=== PATIENT | male | born 1975 | race American Indian/Alaskan Native ===

== ENCOUNTER 2017-05-21 15:43 | Emergency (ER) | payer OTHER ==
[2017-05-21 16:25] VITALS: BP 123/87
--- NOTE | 2017-05-21 16:25 | Emergency Department Report ---
Chief Complaint: Headache Stated Complaint: HEAD PAIN / MIGRANES Time Seen by Provider: 05/21/17 16:22 - HPI History of Present Illness: PT c/o daily headache x 1 month. PT has been seen by PCP and today he was sent to the ED for a scan. PT states his pain is usually on his R side - ROS Review of Systems: + headache - n/v + right eye photophobia - Exam Physical Exam: PT is alert and appropriate gcs 15 steady gait MSE screening note: Focused history and physical exam performed. Due to findings the following was ordered: ct ED Disposition for MSE Condition: Stable
--- NOTE | 2017-05-21 17:18 | Cat Scan Report ---
FINAL REPORT EXAM: CT HEAD/BRAIN WO CON HISTORY: headache x 1 month TECHNIQUE: Noncontrast serial axial images from skull base to vertex. PRIORS: None. FINDINGS: There is no mass effect or midline shift. There are no abnormal intra or extra-axial fluid collections. Cortical sulci and lateral ventricles are within normal limits for size and configuration. Basilar cisterns are patent. No acute intracranial hemorrhage is identified. Visualized paranasal sinuses and mastoid air cells are well aerated. No acute osseous abnormality is identified. IMPRESSION: 1. No abnormal mass or acute intracranial hemorrhage is identified.
--- NOTE | 2017-05-21 17:43 | Emergency Department Report ---
ED Headache HPI - General Chief Complaint: Headache Stated Complaint: HEAD PAIN / MIGRANES Time Seen by Provider: 05/21/17 16:22 Source: patient Exam Limitations: no limitations - History of Present Illness Initial Comments: PT states he had headaches over 5 years ago. PT states he started having daily headaches x 1 month. PT states he was seen by PCP and started on a daily medication without improvement. PT states his head started hurting today. PT states he went to PCP office and was given a referral to Neuro and told to go to the ED for scan of his head. PT states his head is starting to feel better. Timing/Duration: waxing and waning Quality: severe, pressure Head Injury Location: frontal (R ), temporal (R ), occipital (R ), parietal (R) Modifying Factors: worse with: medication Associated Symptoms: denies: facial pain, fever/chills, loss of consciousness, nausea/vomiting, nasal congestion, nasal drainage, numbness in legs/feet, seizures, vision changes, weakness Allergies/Adverse Reactions: Allergies No Known Allergies Allergy (Verified 05/21/17 16:27) Home Medications: Ambulatory Orders Butalb/Acetamin/Caff 50-325-40 [Fioricet] 1 tab PO Q6HR PRN #12 tab 05/21/17 ED Review of Systems ROS: Stated complaint: HEAD PAIN / MIGRANES Other details as noted in HPI Comment: All other systems reviewed and negative Constitutional: denies: fever Eyes: eye pain (photophobia ) ENT: denies: congestion Cardiovascular: denies: syncope Gastrointestinal: denies: nausea, vomiting Skin: denies: rash Neurological: as per HPI, headache. denies: weakness, numbness, abnormal gait, vertigo ED Past Medical Hx - Past Medical History Previous Medical History?: Yes Hx Hypertension: Yes Hx Headaches / Migraines: Yes - Surgical History Past Surgical History?: No - Social History Smoking Status: Current Every Day Smoker Substance Use Type: Alcohol - Medications Home Medications: Home Medications Medication Instructions Recorded Confirmed Last Taken Type Butalb/Acetamin/Caff 50-325-40 1 tab PO Q6HR PRN #12 tab 05/21/17 Unknown Rx [Fioricet] ED Physical Exam - General Limitations: No Limitations General appearance: alert, in no apparent distress - Head Head exam: Present: atraumatic, normocephalic, normal inspection - Expanded Head Exam Expanded Head exam: Present: other (no sinus tenderness ). Absent: laceration, abrasion , contusion, hematoma, racoon eyes, mcduffie's sign, general tenderness, tenderness of temporal artery - Eye Eye exam: Present: normal appearance, PERRL, EOMI. Absent: conjunctival injection, nystagmus Pupils: Present: normal accommodation - ENT ENT exam: Present: normal exam, mucous membranes moist, TM's normal bilaterally , normal external ear exam - Neck Neck exam: Present: normal inspection, full ROM. Absent: tenderness, lymphadenopathy - Respiratory Respiratory exam: Present: normal lung sounds bilaterally. Absent: respiratory distress, wheezes, rales, rhonchi, chest wall tenderness - Cardiovascular Cardiovascular Exam: Present: regular rate, normal rhythm, normal heart sounds - GI/Abdominal GI/Abdominal exam: Present: soft. Absent: tenderness - Extremities Exam Extremities exam: Present: normal inspection, full ROM, normal capillary refill - Back Exam Back exam: Present: normal inspection, full ROM. Absent: tenderness, CVA tenderness (R), CVA tenderness (L) - Neurological Exam Neurological exam: Present: alert, oriented X3, CN II-XII intact, normal gait - Expanded Neurological Exam Expanded Patient oriented to: Present: person, place, time Speech: Present: fluid speech Cranial nerves: EOM's Intact: Normal Motor strength exam: RUE: 5, LUE: 5, RLE: 5, LLE: 5 Best Eye Response (Yrn): (4) open spontaneously Best Motor Response (Yrn): (6) obeys commands Best Verbal Response (Yrn): (5) oriented Yrn Total: 15 - Psychiatric Psychiatric exam: Present: normal affect, normal mood - Skin Skin exam: Present: warm, dry, intact, normal color ED Course Vital Signs 05/21/17 16:23 Temperature 97.9 F Pulse Rate 66 Respiratory 16 Rate Blood Pressure 123/87 O2 Sat by Pulse 98 Oximetry - Reevaluation(s) Reevaluation #1: 05/21/17 17:[address] results. PT denies headache at this time. PT encouraged to follow up with Neuro as referred by PCP - Pulse Oximetry Interpretation Digit-Finger Initial Pulse Oximetry Readin Actions Taken: none ED Medical Decision Making - Radiology Data Radiology results: report reviewed Ct head- nap - Differential Diagnosis migraine, headache, intracranial process Critical Care Time: No Critical care attestation.: If time is entered above; I have spent that time in minutes in the direct care of this critically ill patient, excluding procedure time. ED Disposition Clinical Impression: Headache Qualifiers: Headache type: unspecified Headache chronicity pattern: acute headache Intractability: not intractable Qualified Code(s): R51 - Headache Disposition: DC- TO HOME OR SELFCARE Is pt being admited?: No Does the pt Need Aspirin: No Condition: Stable Instructions: Migraine Headache (ED), Acute Headache (ED) Additional Instructions: Follow up with Neurology as instructed by your PCP Prescriptions: Butalb/Acetamin/Caff 50-325-40 [Fioricet] 1 tab PO Q6HR PRN #12 tab PRN Reason: Headache Referrals: LATASHA FLANNERY MD [Staff Physician] - 3-5 Days PRIMARY CARE, [Primary Care Provider] - 3-5 Days Forms: Work/School Release Form(ED) Time of Disposition: 17:49
== END 2017-05-21 17:57 | disposition home or self-care (01) ==
LOC: ED 15:43
DX: R51 Headache (principal); I10 Essential (primary) hypertension; G43.909 Migraine, unspecified, not intractable, without status migrainosus; F17.200 Nicotine dependence, unspecified, uncomplicated
CPT/HCPCS: 70450